=== PATIENT | female | born 1965 | race African-American/Black ===

== ENCOUNTER → 2020-10-18 | Outpatient (CLI) | payer OTHER ==
[~2020-10-18] MED LIST: ASPIRIN EC81 MG PO; ATORVASTATIN CA20 MG PO; CELEXA10 MG PO; CLOPIDOGREL75 MG PO; COLCHICINE0.6 M1 PO; DILTIAZEM 24HR240 M1 PO; FUROSEMIDE40 MG PO; GABAPENTIN800 MG PO; GLIPIZIDE5 MG PO; GLUCOPHAGE XR500 MG PO; HUMALOG 10100 UNITS/ SC; HUMIRA40 MG/0.8 SQ; HYDROCHLOROTHIA25 MG PO; K-DUR TAB 10 M10 MEQ PO; LANTUS INS100 UTS/M1 SC; LOPRESSOR 25 MG25 MG PO; NORCO 10-325 T1 EACH PO; POTASSIUM CHLO10 MEQ PO; ROBAXIN500 MG PO; TAMIFLU 75 MG C75 MG PO; VITAMIN D250000 UNIT PO; XANAX 0.25 MG0.25 MG PO; ZANTAC150 MG PO; ZOCOR10 MG PO; ZYLOPRIM 300 M300 MG PO
== END ==
LOC: NM 12:34
DX: I25.118 Atherosclerotic heart disease of native coronary artery with other forms of angina pectoris (principal); R06.02 Shortness of breath
CPT/HCPCS: 78452; 93017; A9502; J2785